=== PATIENT | male | born 1960 | race Caucasian/White ===

== ENCOUNTER 2016-09-01 19:22 | Emergency (ER) | payer OTHER ==
[~2016-09-01] VITALS: Ht 170.2 cm; Wt 83.9 kg
[2016-09-01] MEDS ORDERED: PROMETHAZINE HCL 25 MG/1 ML VIAL IM ONE (19:45)
[2016-09-01] MEDS ORDERED: HYDROMORPHONE 1 MG/1 ML DISP.SYRIN IM ONE (19:45)
[2016-09-01] MEDS ORDERED: PROMETHAZINE HCL 25 MG/1 ML VIAL ONE (19:53)
[2016-09-01] MEDS ORDERED: HYDROMORPHONE 1 MG/1 ML DISP.SYRIN ONE (19:53)
--- NOTE | 2016-09-01 19:57 | NUR ---
pt to room, c/o severe headache for approx 1 wk with dizziness. Pt denies weakness, denies numbness, denies visual changes. 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 Pt alert and oriented, no neuro deficits noted. Pt seen by MD. Pt medicated for pain, will monitor for effects of medication. Pt to CT via w/c
--- NOTE | 2016-09-01 20:12 | NUR ---
pt returned from CT via w/c. Pt resting in position of comfort for self.
--- NOTE | 2016-09-01 21:07 | NUR ---
Pt sts pain improved. Pt stable for discharge per MD. Pt given ACI. Pt verbalized understanding of dc instructions. 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
[2016-09-01 21:14] VITALS: BP 132/86; PULSE 60; RESP 18; O2SAT 96
== END 2016-09-01 21:15 | disposition home or self-care (01) ==
LOC: ER 19:22
DX: R51 Headache (principal); R11.0 Nausea; Z88.0 Allergy status to penicillin
CPT/HCPCS: 70450; 96372 ×2; 99284; A4663; J1170; J2550

== ENCOUNTER 2023-10-15 22:41 | Emergency (ER) | payer MEDICAID, MEDICARE ==
[~2023-10-15] VITALS: Ht 170.2 cm; Wt 81.6 kg
[2023-10-15 22:46] VITALS: O2SAT 98
[2023-10-15] MEDS ORDERED: SULF1TAB48 PO (23:25)
[2023-10-15] MEDS ORDERED: SULFAMETH/TRIMETH 800/160 MG TABLET ONE (23:32)
[2023-10-15] MEDS: SULFAMETH/TRIMETH 800/160 MG TABLET PO ONE (23:35)
== END 2023-10-15 23:40 | disposition home or self-care (01) ==
LOC: ER 22:45
DX: L60.0 Ingrowing nail (principal); E78.00 Pure hypercholesterolemia, unspecified; Z79.899 Other long term (current) drug therapy; Z88.0 Allergy status to penicillin
CPT/HCPCS: A4606; A4663

== ENCOUNTER 2024-05-03 11:09 | Emergency (ER) | payer BC, MEDICAID ==
[~2024-05-03] VITALS: Ht 170.2 cm; Wt 81.6 kg
[~2024-05-03 11:09] MED LIST: SULF1TAB48 PO
[2024-05-03] MEDS ORDERED: FENO40TA3 PO (11:19)
[2024-05-03 11:54] LABS: BASOPHILS % (AUTO) 0.5 % (0.0-2.0); EOSINOPHILS # (AUTO) 0.1 K/uL (0.0-0.7); EOSINOPHILS % (AUTO) 1.4 % (0.0-7.0); HEMOGLOBIN 15.8 g/dL (12.5-16.3); LYMPHOCYTES # (AUTO) 3.9 K/uL (0.8-4.8); LYMPHOCYTES % (AUTO) 42.8 % (20.5-51.5); MEAN CORPUSCULAR HEMOGLOBIN 30.2 uug (23.8-33.4); MEAN CORPUSCULAR HGB CONC 35 g/dL (32.5-36.3); MEAN CORPUSCULAR VOLUME 86.1 fL (73.0-96.2); MONOCYTES # (AUTO) 0.8 K/uL (0.1-1.30); MONOCYTES % (AUTO) 8.5 % (0.0-11.0); NEUTROPHILS # (AUTO) 4.3 K/uL (1.8-8.9); NEUTROPHILS % (AUTO) 46.8 % (38.5-71.5); PLATELET COUNT (AUTO) 242 K/uL (152-348); RED BLOOD CELL COUNT(AUTO) 5.22 MIL/uL (4.06-5.63); RED CELL DISTRIBUTION WIDTH 13.8 % (12.1-16.2); WHITE BLOOD COUNT (AUTO) 9.1 K/uL (3.6-10.2)
[2024-05-03] MEDS ORDERED: MAGNESIUM SULFATE/D5W 200 ML ONE (12:05)
[2024-05-03] MEDS ORDERED: ASPIRIN 81 MG TAB.CHEW ONE (12:05)
[2024-05-03] MEDS ORDERED: ONDANSETRON 4 MG/2 ML VIAL ONE (12:05)
[2024-05-03] MEDS ORDERED: METOPROLOL TARTRATE 5 MG/5 ML VIAL IVP ONE (12:05)
[2024-05-03] MEDS ORDERED: NITROGLYCERIN OINT 1 GM PACKET TP ONE (12:06)
[2024-05-03] MEDS ORDERED: HYDROMORPHONE 1 MG/1 ML DISP.SYRIN ONE ×2 (12:07→12:50)
[2024-05-03 12:11] LABS: DIFFERENTIAL COMMENT 1
[2024-05-03] MEDS: MAGNESIUM SULFATE 2 GM in IV DEXTROSE 5% 100 ML IV ONE (12:16)
[2024-05-03] MEDS: ONDANSETRON 4 MG/2 ML VIAL IV ONE (12:16)
[2024-05-03] MEDS: HYDROMORPHONE 1 MG/1 ML DISP.SYRIN IV ONE ×2 (12:16→12:52)
[2024-05-03 12:17] VITALS: BP 152/88
[2024-05-03] MEDS: NITROGLYCERIN OINT 1 GM PACKET TP ONE (12:17)
[2024-05-03] MEDS: ASPIRIN 81 MG TAB.CHEW PO ONE (12:17)
[2024-05-03] MEDS: METOPROLOL TARTRATE 5 MG/5 ML VIAL IVP ONE (12:17)
[2024-05-03 12:22] LABS: CALCIUM 8.7 mg/dL (8.5-10.1); CARBON DIOXIDE 25 mmol/L (21-32); CHLORIDE 103 mmol/L (98-107); GLUCOSE 151 mg/dL (74-106); POTASSIUM 3.5 mmol/L (3.5-5.1); SODIUM SERUM 141 mmol/L (136-145); UREA NITROGEN, BLOOD 13 mg/dL (7-18)
[2024-05-03 12:28] LABS: ALANINE AMINOTRANSFERASE 32 U/L (16-63); ALBUMIN 4.3 g/dL (3.4-5.0); ALKALINE PHOSPHATASE 88 U/L (50-136); ASPARTATE AMINOTRANSFERASE 26 U/L (15-37); BILIRUBIN,DIRECT 0.2 mg/dL (0.0-0.2); BILIRUBIN,TOTAL 1.1 mg/dL (0.2-1.0); TOTAL PROTEIN, SERUM 7.8 g/dL (6.4-8.2)
[2024-05-03] MEDS ORDERED: POTASSIUM BICARBONATE/CIT AC 25 MEQ TABLET.EFF ONE (12:39)
[2024-05-03] MEDS: POTASSIUM BICARBONATE/CIT AC 25 MEQ TABLET.EFF PO ONE (12:40)
[2024-05-03] MEDS ORDERED: TENECTEPLASE 50 MG KIT IVP ONE (13:35)
[2024-05-03] MEDS: TENECTEPLASE 50 MG KIT IVP ONE (13:53)
[2024-05-03 14:11] VITALS: O2SAT 100
== END 2024-05-03 14:20 | disposition still patient (30) ==
LOC: ER 11:09
DX: I21.09 ST elevation (STEMI) myocardial infarction involving other coronary artery of anterior wall (principal); R11.0 Nausea; M54.9 Dorsalgia, unspecified; M25.512 Pain in left shoulder; E78.1 Pure hyperglyceridemia; K21.9 Gastro-esophageal reflux disease without esophagitis; Z88.0 Allergy status to penicillin
CPT/HCPCS: 99291; 96365; 96375 ×2; 80076; 80048; 85025; 85379; 85730; 84484 ×2; 36415; 71045; 93005 ×3; 96376; J3101; J1171 ×2; J3475 ×2; J3490; J2405; A4606; A4663

== ENCOUNTER 2025-01-09 21:10 | Emergency (ER) | payer BC, MEDICAID ==
[~2025-01-09] VITALS: Ht 170.2 cm; Wt 81.6 kg
[~2025-01-09 21:10] MED LIST changes: +FENO40TA3 PO
[2025-01-09 21:59] VITALS: BP 111/68
[2025-01-09] MEDS ORDERED: TDAP DIPH,PERTUSS,TET VAC/PF 0.5 ML DISP.SYRIN IM ONE (22:21)
[2025-01-09] MEDS: TDAP DIPH,PERTUSS,TET VAC/PF 0.5 ML DISP.SYRIN IM ONE (22:32)
[2025-01-09 22:36] VITALS: BP 111/68; TEMP 98; O2SAT 96
== END 2025-01-09 22:36 | disposition home or self-care (01) ==
LOC: ER 21:18
DX: S60.457A Superficial foreign body of left little finger, initial encounter (principal); L02.512 Cutaneous abscess of left hand; E78.5 Hyperlipidemia, unspecified; Z88.0 Allergy status to penicillin; X58.XXXA Exposure to other specified factors, initial encounter; Y93.89 Activity, other specified; Y92.89 Other specified places as the place of occurrence of the external cause; Y99.8 Other external cause status
CPT/HCPCS: 90715; A4606; A4663